=== PATIENT | female | born 2000 | race Caucasian/White ===

== ENCOUNTER 2021-02-28 09:23 | Emergency (ER) | payer OTHER ==
[2021-02-28] MEDS ORDERED: MACROBID 100 M100 MG PO (13:20)
== END 2021-02-28 13:25 | disposition home or self-care (01) ==
LOC: ER1 09:23
DX: S39.012A Strain of muscle, fascia and tendon of lower back, initial encounter (principal); N39.0 Urinary tract infection, site not specified; V49.9XXA Car occupant (driver) (passenger) injured in unspecified traffic accident, initial encounter
CPT/HCPCS: 72131; 81001; 84703; 87086; 99284